=== PATIENT | female | born 1975 | race Hispanic/Latino ===

== ENCOUNTER 2021-03-24 09:05 | Emergency (ER) | payer OTHER, SELFPAY ==
--- NOTE | 2021-03-24 10:06 | ER ---
Nurse's Notes [facility] Name: Supriya Bentley Age: 45 yrs Sex: Female : 1975 Arrival Date: 03/24/2021 Time: 09:08 Bed 25 Private MD: Diagnosis: Strain of other muscles, fascia and tendons at shoulder and upper arm level, right arm Presentation: 03/24 09:18 Chief complaint: Patient states: when she was dragging the trash can 2 weeks ago, she ap3 felt a pull in her arm. She complains of right upper arm pain x's 2 weeks. Coronavirus screen: Vaccine status: Patient reports being unvaccinated. At this time, the client does not indicate any symptoms associated with coronavirus-19. Ebola Screen: No symptoms or risks identified at this time. Initial Sepsis Screen: Does the patient meet any 2 criteria? No. Patient's initial sepsis screen is negative. Does the patient have a suspected source of infection? No. Patient's initial sepsis screen is negative. Risk Assessment: Do you want to hurt yourself or someone else? Patient reports no desire to harm self or others. Onset of symptoms was March 03, 2021. 09:18 Method Of Arrival: Ambulatory ap3 09:18 Acuity: KELVIN 4 ap3 Triage Assessment: 09:20 General: Appears in no apparent distress. Behavior is calm, cooperative, appropriate ap3 for age. Pain: Complains of pain in right bicep Pain began 2 Weeks ago Alleviated by rest, Aggravated by increased activity. Neuro: Level of Consciousness is awake, alert, obeys commands, Oriented to person, place, time, situation, Appropriate for age Moves all extremities. Gait is steady, Speech is normal. Cardiovascular: Patient's skin is warm and dry. Respiratory: Airway is patent Respiratory effort is even, unlabored, Respiratory pattern is regular, symmetrical. Musculoskeletal:. 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 - Social history:: Smoking status: Patient denies any tobacco usage or history of. Screenin:21 Abuse screen: Denies threats or abuse. Nutritional screening: No deficits noted. ap3 Tuberculosis screening: No symptoms or risk factors identified. Fall Risk None identified. Vital Signs: 09:18 BP 131 / 96; Pulse 87; Resp 17; Temp 98.7(TE); Pulse Ox 100% on R/A; Weight 81.65 kg; ap3 Height 5 ft. 4 in. (162.56 cm); 09:18 Body Mass Index 30.90 (81.65 kg, 162.56 cm) ap3 ED Course: 09:08 Patient arrived in ED. as 09:18 Kiya Hart, RN is Primary Nurse. ap3 09:20 Triage completed. ap3 09:22 Arm band placed on left wrist. ap3 09:22 Patient has correct armband on for positive identification. Bed in low position. Call ap3 light in reach. Side rails up X 1. Pulse ox on. NIBP on. Door closed. Noise minimized. 09:43 Tina Hoff MD is Attending Physician. sp3 10:05 Vinh De La Cruz MD is Referral Physician. sp3 10:27 No provider procedures requiring assistance completed. Patient did not have IV access ap3 during this emergency room visit. Administered Medications: 10:11 Drug: Ketorolac 30 mg Route: IM; Site: left deltoid; ap3 10:28 Follow up: Response: No adverse reaction ap3 Outcome: 10:06 Discharge ordered by . sp3 10:28 Discharged to home ambulatory. ap3 10:28 Condition: good 10:28 Discharge instructions given to patient, Instructed on discharge instructions, follow up and referral plans. medication usage, sling use Demonstrated understanding of instructions, follow-up care, medications, Prescriptions given X 1. 10:28 Patient left the ED. ap3 Signatures: Ailyn Beyer Amanda, LAINA RN ap3 Tina Hoff MD MD sp3
--- NOTE | 2021-03-24 10:06 | EDPHYS ---
Physician Documentation [facility] Name: Supriya Bentley Age: 45 yrs Sex: Female : 1975 Arrival Date: 03/24/2021 Time: 09:08 Bed 25 Private MD: ED Physician Tina Hoff HPI: 03/24 09:59 This 45 yrs old Female presents to ER via Ambulatory with complaints of sp3 Shoulder Pain. 09:59 45-year-old female with no past medical history presents with right shoulder and upper sp3 arm muscular pain for approximately 2 weeks. Patient states that she was pulling a heavy trash can and felt a sudden onset of symptoms at that time after which the pain is been waxing and waning. Only medication she is taken is Tylenol several times over the course of the 2 weeks. She denies taking any NSAIDs or any other medications. Patient continues to use the arm but in a limited capacity secondary to the pain. Patient denies any direct trauma, fall, prior history of broken bones, any other symptoms at this time. On ROS she denies headache, neck pain, chest pain, back pain, shortness of breath, abdominal pain, nausea, vomiting, diarrhea, neuro symptoms including peripheral numbness or tingling, rash, or any other symptoms at this time. Remainder of ROS is negative.. 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 - Social history:: Smoking status: Patient denies any tobacco usage or history of. ROS: 10:03 Constitutional: Negative for fever, chills, and weight loss, Cardiovascular: Negative sp3 for chest pain, palpitations, and edema, Respiratory: Negative for shortness of breath, cough, wheezing, and pleuritic chest pain, Abdomen/GI: Negative for abdominal pain, nausea, vomiting, diarrhea, and constipation, Skin: Negative for injury, rash, and discoloration, Neuro: Negative for headache, weakness, numbness, tingling, and seizure. 10:03 All other systems are negative. sp3 Exam: 10:03 Constitutional: This is a well developed, well nourished patient who is awake, alert, sp3 and in no acute distress. Head/Face: Normocephalic, atraumatic. Eyes: Pupils equal round and reactive to light, extra-ocular motions intact. Lids and lashes normal. Conjunctiva and sclera are non-icteric and not injected. Cornea within normal limits. Periorbital areas with no swelling, redness, or edema. ENT: Nares patent. No nasal discharge, no septal abnormalities noted. External auditory canals are clear. Oropharynx with no redness, swelling, or masses, exudates, or evidence of obstruction, uvula midline. Mucous membranes moist. Neck: Trachea midline, no thyromegaly or masses palpated, and no cervical lymphadenopathy. Supple, full range of motion without nuchal rigidity, or vertebral point tenderness. No Meningismus. Chest/axilla: Normal chest wall appearance and motion. Nontender with no deformity. No lesions are appreciated. Cardiovascular: Regular rate and rhythm with a normal S1 and S2. No gallops, murmurs, or rubs. Normal PMI, no JVD. No pulse deficits. Respiratory: Lungs have equal breath sounds bilaterally, clear to auscultation and percussion. No rales, rhonchi or wheezes noted. No increased work of breathing, no retractions or nasal flaring. Abdomen/GI: Soft, non-tender, with normal bowel sounds. No distension or tympany. No guarding or rebound. No evidence of tenderness throughout. Back: No spinal tenderness. No costovertebral tenderness. Full range of motion. Skin: Warm, dry with normal turgor. Normal color with no rashes, no lesions, and no evidence of cellulitis. Neuro: Awake and alert, GCS 15, oriented to person, place, time, and situation. Cranial nerves II-XII grossly intact. Motor strength 5/5 in all extremities. Sensory grossly intact. Cerebellar exam normal. Normal gait. Psych: Awake, alert, with orientation to person, place and time. Behavior, mood, and affect are within normal limits. 10:03 Musculoskeletal/extremity: Patient has mild point tenderness over the deltoid muscle with no tenderness on the rotator cuff. Patient has full range of motion including abduction abduction. Patient has normal neurological and vascular exam in the distal extremity on the right side. . Vital Signs: 09:18 BP 131 / 96; Pulse 87; Resp 17; Temp 98.7(TE); Pulse Ox 100% on R/A; Weight 81.65 kg; ap3 Height 5 ft. 4 in. (162.56 cm); 09:18 Body Mass Index 30.90 (81.65 kg, 162.56 cm) ap3 MDM: 09:54 Patient medically screened. sp3 10:04 Data reviewed: vital signs, nurses notes. ED course: 45-year-old female with likely sp3 muscle strain on the right deltoid. We will put patient in a sling and give her instructions to stretch and exercise full range of motion but rest in between those exercises. Patient will be limited in usage. Will administer ketorolac 30 mg IM and discharged on diclofenac p.o. as needed with follow-up with her PCP.. 03/24 10:07 Order name: Sling; Complete Time: 10:11 sp3 Administered Medications: 10:11 Drug: Ketorolac 30 mg Route: IM; Site: left deltoid; ap3 10:28 Follow up: Response: No adverse reaction ap3 Disposition Summary: 03/24/21 10:06 Discharge Ordered Location: Home sp3 Condition: Stable sp3 Diagnosis - Strain of other muscles, fascia and tendons at shoulder and upper arm level, right sp3 arm Followup: sp3 - With: Vinh De La Cruz MD - When: As needed - Reason: Continuance of care Discharge Instructions: - Discharge Summary Sheet sp3 - Muscle Strain, [id number] sp3 Forms: - Medication Reconciliation Form sp3 - Thank You Letter sp3 - Antibiotic Education sp3 - Prescription Opioid Use sp3 Prescriptions: - Diclofenac Sodium 75 mg Oral Tablet Sustained Release - take 1 tablet by ORAL route 2 times per day; 30 tablet; Refills: 0, Product sp3 Selection Permitted Signatures: Kiya Hart RN RN ap3 Tina Hoff MD MD sp3
[2021-03-24] MEDS ORDERED: KETOROLAC 30 MG/ML INJ ONE (10:34)
[2021-03-24 10:39] VITALS: BP 131/96; TEMP 98.7; O2SAT 100
== END 2021-03-24 10:28 | disposition home or self-care (01) ==
LOC: ER 09:05
DX: S46.911A Strain of unspecified muscle, fascia and tendon at shoulder and upper arm level, right arm, initial encounter (principal); X50.0XXA Overexertion from strenuous movement or load, initial encounter; X50.9XXA Other and unspecified overexertion or strenuous movements or postures, initial encounter; Y93.89 Activity, other specified; Y92.9 Unspecified place or not applicable
CPT/HCPCS: 96372; 99283

== ENCOUNTER 2021-07-28 10:32 | Emergency (ER) | payer SELFPAY ==
--- OUTSIDE RECORDS SUMMARY | 2021-07-28 10:35 | XMS REPORT | Continuity of Care Document ---
:1975 Author Organization [facility] t Address [address] [place] [address] [address]. [address] [place] [address] Care Team Providers Name Role Phone Ct Gregory MD Attending Clinician Ct GREGORY Attending Clinician Unavailable Payers Payer Name Policy Type Policy Number Effective Date Expiration Date Ct LUBIN DISABILITY [id number] DETERMINATION SVCS 00:00:00 Problems Condition Condition Condition Status Onset Resolution Last Treating Co mments Source Name Details Category Date Date Treatment Clinician Date No known No known Disease Unive rs active active ity of problems problems [facility] Allergies, Adverse Reactions, Alerts Allergy Allergy Status Severity Reaction(s) Onset Inactive Treating Comm ents Source Name Type Date Date Clinician NO KNOWN Drug Active Univers ALLERGIE Class ity of S [facility] Social History Social Habit Start Date Stop Date Quantity Comments Source Sex Assigned At Uni versity [facility] Smoking Status Start Date Stop Date Source Unknown if ever smoked Universit y [facility] Medications Ordered Filled Start Stop Current Ordering Indication Dosage Frequency Signature Comments Components Source Medication Medication Date Date Medication? Clinician (SIG) Name Name ondansetron 2020-0 2020- No 4mg 4 mg, Slow Univers (ZOFRAN 3-17 17 IV Push, ity of (PF)) 11:00: 10:00 ONCE, 1 [place] injection 4 00 :00 dose, Tue Med ical mg 08/15/19 at Branch 0600, [place] morpHINE 2020-0 2020- No 4mg 4 mg, Slow Un tania injection 4 3-17 -17 IV Push, ity of mg 11:00: 10:00 ONCE, 1 [place] 00 :00 dose, Tue Medical 08/15/19 at Branch 0600, STAT HYDROcodone 2020-0 Yes [id number] 1{tbl} Take 1 Univers -acetaminop 3-17 tablet by ity of hen 10-325 00:00: mouth [place] mg tablet 00 every 6 Medical (six) Branch hours as needed for Pain (scale 7-10). Vital Signs Vital Name Observation Time Observation Value Comments Source Diastolic blood 2019-08-15 09:50:00 56 mm[Hg] Unive rsity of [facility] Heart rate 2019-08-15 09:50:00 80 /min [facility] Body temperature 2019-08-15 09:50:00 36.83 Faye [facility] Respiratory rate 2019-08-15 09:50:00 18 /min [facility] Body weight 2019-08-15 09:50:00 81.647 kg [facility] Oxygen saturation in 2019-08-15 09:50:00 99 /min [facility] Arterial blood by [facility] Pulse oximetry Branch Systolic blood 2019-08-15 09:50:00 123 mm[Hg] Univer sity [facility] [place] [facility] Procedures Procedure Date / Time Performed Performing Clinician [facility] e NOTICE OF PRIVACY 2019-08-15 09:37:12 Doctor Unassigned, No Univ [facility] PRACTICES Name [facility] CONSENT/REFUSAL FOR 2019-08-15 09:36:49 Doctor Unassigned, No Un [facility] DIAGNOSIS AND Name Medical Branch TREATMENT Encounters Start End Encounter Admission Attending Care Care Encounter Source Date/Time Date/Time Type Type Clinicians Facility Department ID 2019-08-15 2019-08-15 Emergency [facility] [id number] Univers 04:49:25 07:04:00 Eli Fraga [id number] [place] [id number] [facility] [id number] [facility] 084 Branch 2019-08-15 2019-08-15 Emergency X [facility] ERT [id number] Univers 04:49:25 04:49:25 ELI lackey [facility] Results This patient has no known results.
[2021-07-28 11:24] LABS: Absolute Lymphocytes (CBC) 1.8 K/uL (0.7-4.9); Hematocrit 37.3 % (36.0-45.0); Lymphocytes % 21.4 % (15.3-44.8); MPV 8.8 fL (7.6-11.3); RBC Red Blood Cell Count 4.15 M/uL (3.86-4.86)
--- NOTE | 2021-07-28 11:44 | RAD REPORT ---
EXAM DESCRIPTION: CT - Head Brain Wo Cont - 07/28/2021 11:34 am CLINICAL HISTORY: SEIZURE COMPARISON: No comparisons TECHNIQUE: All CT scans are performed using dose optimization technique as appropriate and may inclu de automated exposure control or mA/KV adjustment according to patient size. FINDINGS: No intracranial hemorrhage, hydrocephalus or extra-axial fluid collection.No areas of brai n edema or evidence of midline shift. The paranasal sinuses and mastoids are clear. The calvarium is intact. IMPRESSION: No acute intracranial abnormality.
[2021-07-28 11:57] LABS: Urine Blood Trace-intact (Negative); Urine Glucose Negative (Negative); Urine Protein Negative (Negative); Urine Specific Gravity 1.015 (1.005-1.030); Urine pH 5.5 (5.0-7.0)
[2021-07-28 12:11] LABS: Protime INR 0.95
[2021-07-28 12:13] LABS: Barbiturates NEGATIVE (NEGATIVE); Benzodiazepines NEGATIVE (NEGATIVE); Cocaine NEGATIVE (NEGATIVE); METHAMPHETAM NEGATIVE (NEGATIVE); Methadone NEGATIVE (NEGATIVE); Opiates NEGATIVE (NEGATIVE); Phencyclidine NEGATIVE (NEGATIVE); THC Cannibis NEGATIVE (NEGATIVE)
[2021-07-28 12:27] LABS: ALT/SGPT 21 U/L (12-78); AST/SGOT 12 U/L (15-37); Albumin 3.7 g/dL (3.4-5.0); Alkaline Phosphatase 125 U/L (45-117); BUN Blood Urea Nitrogen 9 mg/dL (7-18); Bicarbonate 24 mmol/L (21-32); Bilirubin Direct < 0.1 mg/dL (0-0.2); Bilirubin Total 0.2 mg/dL (0.2-1.0); Glucose Level 94 mg/dL (74-106); Potassium 3.7 mmol/L (3.5-5.1); Sodium Level 138 mmol/L (136-145)
[2021-07-28 12:37] LABS: Urine Specific Gravity/Preg 1.015 (1.005-1.030)
[2021-07-28] MEDS ORDERED: KETOROLAC 30 MG/ML INJ ONE (12:44)
[2021-07-28 13:49] LABS: Urine Bacteria 20-50 /HPF (<20); Urine Mucus LIGHT /HPF (NONE SEEN); Urine RBC <5 /HPF (NONE SEEN)
--- NOTE | 2021-07-28 15:16 | ER ---
Nurse's Notes [facility] Name: Supriya Bentley Age: 45 yrs Sex: Female : 1975 Arrival Date: 07/28/2021 Time: 10:34 Bed 7 Private MD: Brian Almanza F Diagnosis: Other seizures Presentation: 07/28 10:47 Chief complaint: Patient states: has a hx of seizures and over past three days she has iw had seizures every day, at night and in the morning, last ine was this morning, she normally only has seizures every 3-4 months, takes dilantin and keppra daily, sees Dr. Almanza. Coronavirus screen: At this time, the client does not indicate any symptoms associated with coronavirus-19. Ebola Screen: Patient negative for fever greater than or equal to 101.5 degrees Fahrenheit, and additional compatible Ebola Virus Disease symptoms Patient denies exposure to infectious person. Patient denies travel to an Ebola-affected area in the 21 days before illness onset. No symptoms or risks identified at this time. Initial Sepsis Screen: Does the patient meet any 2 criteria? No. Patient's initial sepsis screen is negative. Does the patient have a suspected source of infection? No. Patient's initial sepsis screen is negative. Risk Assessment: Do you want to hurt yourself or someone else? Patient reports no desire to harm self or others. Onset of symptoms was July 25, 2021. 10:47 Method Of Arrival: Ambulatory iw 10:47 Acuity: KELVIN 3 iw Triage Assessment: 10:50 General: Appears in no apparent distress. comfortable, Behavior is calm, cooperative, bp appropriate for age. Pain: Denies pain. EENT: No deficits noted. Neuro: Level of Consciousness is awake, alert, obeys commands, Oriented to Appropriate for age Seizure activity reported prior to arrival. Cardiovascular: No deficits noted. Respiratory: No deficits noted. GI: No signs and/or symptoms were reported involving the gastrointestinal system. : No signs and/or symptoms were reported regarding the genitourinary system. Derm: No deficits noted. Musculoskeletal: No deficits noted. Historical: - Allergies: 10:49 No Known Allergies; iw - Home Meds: 10:49 Phenytoin 100 mg Oral twice a day [Active]; levetiracetam 500 mg oral tab 1 tab 2 times iw per day [Active]; - PMHx: 10:49 Seizure; iw - PSHx: 10:49 bladder; iw - Immunization history:: Client reports having NOT received the Covid vaccine. - Social history:: Smoking status: Patient denies any tobacco usage or history of. Screenin:50 Abuse screen: Denies threats or abuse. Denies injuries from another. Nutritional bp screening: No deficits noted. Tuberculosis screening: No symptoms or risk factors identified. Fall Risk None identified. Assessment: 10:50 General: SEE TRIAGE NOTE. bp 13:05 Reassessment: No changes from previously documented assessment. Patient and/or family bp updated on plan of care and expected duration. Pain level reassessed. ALL CURRENT ORDERS COMPLETE. 14:17 Reassessment: No changes from previously documented assessment. Patient and/or family bp updated on plan of care and expected duration. Pain level reassessed. AWAITING ADD ON LAB RESULTS. 16:02 Reassessment: PT D/C HOME AMBULATORY WITH FAMILY, DX WITH EPILEPSY. bp Vital Signs: 10:47 BP 146 / 99; Pulse 82; Resp 16; Temp 98.1; Pulse Ox 100% on R/A; Weight 83.91 kg; iw Height 5 ft. 2 in. (157.48 cm); Pain 0/10; 12:00 BP 131 / 90; Pulse 72; Resp 16; Pulse Ox 100% ; bp 13:00 BP 144 / 86; Pulse 74; Resp 17; Pulse Ox 100% ; bp 14:00 BP 136 / 89; Pulse 71; Resp 16; Pulse Ox 100% ; bp 16:02 BP 124 / 80; Pulse 75; Resp 16; Pulse Ox 100% ; bp 10:47 Body Mass Index 33.84 (83.91 kg, 157.48 cm) iw Christine Coma Score: 10:50 Eye Response: spontaneous(4). Verbal Response: oriented(5). Motor Response: obeys bp commands(6). Total: 15. ED Course: 10:34 Patient arrived in ED. am2 10:35 Brian Almanza MD is Private Physician. am2 10:44 Rocky Hernández, LAINA is Primary Nurse. bp 10:47 Kiko Hancock PA is PHCP. cp 10:47 Kiko Thao MD is Attending Physician. cp 10:49 Triage completed. iw 10:50 Patient has correct armband on for positive identification. Bed in low position. Call bp light in reach. Side rails up X2. Adult w/ patient. 10:51 Arm band placed on. iw 11:00 Seizure precautions initiated. bp 11:22 EKG done, by ED staff, reviewed by Kiko VICK. mb7 11:33 CT Head Brain wo Cont In Process Unspecified. EDMS 11:59 Urine Drug Screen Sent. mb7 15:15 Brian Almanza MD is Referral Physician. cp 16:04 No provider procedures requiring assistance completed. IV discontinued, intact, bp bleeding controlled, No redness/swelling at site. Pressure dressing applied. Administered Medications: 12:44 Not Given (Patient Refused): Ketorolac 30 mg IVP once jd3 15:30 Drug: Dilantin (phenytoin sodium extended) 500 mg Route: PO; bp 16:04 Follow up: Response: No adverse reaction bp Outcome: 15:15 Discharge ordered by MD. cp 16:04 Discharged to home ambulatory, with family. bp 16:04 Condition: stable 16:04 Discharge instructions given to patient, Instructed on discharge instructions, follow up and referral plans. medication usage, Demonstrated understanding of instructions, follow-up care, medications, Prescriptions given X 1. 16:04 Patient left the ED. bp Signatures: Dispatcher [employer] EDMS Saritha Paredes, Kiko Narayanan RN, PA PA cp Kiya Parrish am2 Rocky Hernández, LAINA RN bp Marita Casillas mb7 Gray Renee RN jd3
--- NOTE | 2021-07-28 15:16 | EDPHYS ---
Physician Documentation [facility] Name: Supriya Bentley Age: 45 yrs Sex: Female : 1975 Arrival Date: 07/28/2021 Time: 10:34 Bed 7 Private MD: Brian Almanza F ED Physician Kiko Thao HPI: 07/28 11:05 This 45 yrs old Female presents to ER via Ambulatory with complaints of cp Probable Seizure. 11:05 The patient presents with a history of multiple seizures, most recent seizure this cp morning. 11:05 Seizure Hx: Original onset: since childhood,\E\ Seizure medications: Keppra, Dilantin. cp Associated injury: The patient did not suffer any apparent associated injury. Patient reports increase in seizures over past several days. Patient denies feeling ill, chest pain, abdominal pain. Historical: - Allergies: 10:49 No Known Allergies; iw - Home Meds: 10:49 Phenytoin 100 mg Oral twice a day [Active]; levetiracetam 500 mg oral tab 1 tab 2 times iw per day [Active]; - PMHx: 10:49 Seizure; iw - PSHx: 10:49 bladder; iw - Immunization history:: Client reports having NOT received the Covid vaccine. - Social history:: Smoking status: Patient denies any tobacco usage or history of. ROS: 11:10 Neuro: Positive for history of seizure, Negative for altered mental status, headache, cp weakness. 11:10 Eyes: Negative for injury, pain, redness, and discharge. cp 11:10 Constitutional: Negative for body aches, chills, fever, poor PO intake. 11:10 Neck: Negative for pain with movement, pain at rest, stiffness. 11:10 Cardiovascular: Negative for chest pain, edema, palpitations. 11:10 Respiratory: Negative for cough, shortness of breath, wheezing. 11:10 Abdomen/GI: Negative for abdominal pain, nausea, vomiting, and diarrhea. 11:10 : Negative for urinary symptoms. 11:10 All other systems are negative. Exam: 11:15 Constitutional: The patient appears in no acute distress, alert, awake, cp non-diaphoretic, non-toxic, well developed, well nourished. 11:15 Head/Face: Normocephalic, atraumatic. cp 11:15 Eyes: Periorbital structures: appear normal, Pupils: equal, round, and reactive to light and accomodation, Extraocular movements: intact throughout, Conjunctiva: normal, no exudate, no injection, Sclera: no appreciated abnormality, Lids and lashes: appear normal, bilaterally. 11:15 ENT: External ear(s): are unremarkable, Nose: is normal, Mouth: Lips: moist, Oral mucosa: moist, Posterior pharynx: Airway: no evidence of obstruction, patent. 11:15 Neck: ROM/movement: is normal, is supple, without pain, no range of motions limitations, no nuchal rigidity. 11:27 ECG was reviewed by the Attending Physician. Vital Signs: 10:47 BP 146 / 99; Pulse 82; Resp 16; Temp 98.1; Pulse Ox 100% on R/A; Weight 83.91 kg; iw Height 5 ft. 2 in. (157.48 cm); Pain 0/10; 12:00 BP 131 / 90; Pulse 72; Resp 16; Pulse Ox 100% ; bp 13:00 BP 144 / 86; Pulse 74; Resp 17; Pulse Ox 100% ; bp 14:00 BP 136 / 89; Pulse 71; Resp 16; Pulse Ox 100% ; bp 16:02 BP 124 / 80; Pulse 75; Resp 16; Pulse Ox 100% ; bp 10:47 Body Mass Index 33.84 (83.91 kg, 157.48 cm) iw [place] Coma Score: 10:50 Eye Response: spontaneous(4). Verbal Response: oriented(5). Motor Response: obeys bp commands(6). Total: 15. MDM: 10:48 Patient medically screened. cp 15:05 Data reviewed: vital signs, nurses notes, lab test result(s), EKG, radiologic studies, cp CT scan. 15:05 Test interpretation: by ED physician or midlevel provider: ECG. Physician consultation: cp Brian Almanza MD was called at 15:05, was contacted at 15:05, regarding consult, patient's condition, will have patient increase Dilantin and take 200 mg in morning and 300mg before bedtime, f/u in clinic in 1 week to recheck dilantin level. Give 500 mg Dilantin in ED now. 07/28 10:55 Order name: Acetaminophen; Complete Time: 12:39 cp 07/28 14:19 Interpretation: Reviewed. cp 07/28 10:55 Order name: Basic Metabolic Panel; Complete Time: 12:39 cp 07/28 12:40 Interpretation: Normal except: CL 109. cp 07/28 10:55 Order name: CBC with Diff; Complete Time: 11:56 cp 07/28 11:56 Interpretation: Normal except: MCV 89.8; RDW 15.3. cp 07/28 10:55 Order name: ETOH Level; Complete Time: 12:39 cp 07/28 10:55 Order name: Hepatic Function; Complete Time: 12:39 cp 07/28 12:40 Interpretation: Normal except: AST 12; ALK 125; GLOB 4.3; A/G 0.9. cp 07/28 10:55 Order name: PT-INR; Complete Time: 12:39 cp 07/28 10:55 Order name: Ptt, Activated; Complete Time: 12:39 cp 07/28 10:55 Order name: Salicylate; Complete Time: 12:39 cp 07/28 10:55 Order name: Urine Drug Screen; Complete Time: 12:39 cp 07/28 11:57 Order name: Urine Dipstick-Ancillary; Complete Time: 12:39 EDNV 07/28 12:40 Interpretation: Normal except: UBLD Trace-intact; UESTR 1+. 07/28 11:58 Order name: Urine --Ancillary (enter results); Complete Time: 12:39 bd 07/28 13:04 Order name: Dilantin; Complete Time: 15:05 cp 07/28 13:04 Order name: Urine Microscopic Only; Complete Time: 13:52 cp 07/28 14:20 Interpretation: Normal except: UBACT 20-50; SQEPI 10-20. cp 07/28 13:50 Order name: Urine Culture EDNV 07/28 10:55 Order name: EKG; Complete Time: 10:55 cp 07/28 10:55 Order name: EKG - Nurse/Tech; Complete Time: 11:22 cp 07/28 10:55 Order name: IV Saline Lock; Complete Time: 11:25 cp 07/28 10:55 Order name: Labs collected and sent; Complete Time: 11:25 cp 07/28 10:55 Order name: Urine Dipstick-Ancillary (obtain specimen); Complete Time: 11:59 cp 07/28 10:55 Order name: Urine Test (obtain specimen); Complete Time: 11:59 cp 07/28 11:08 Order name: CT Head Brain wo Cont; Complete Time: 11:56 cp 07/28 11:56 Interpretation: Report reviewed. cp 07/28 11:29 Order name: Labs - recollect needed: recollect all tubes; Complete Time: 11:52 bd EC:27 Rate is 76 beats/min. Rhythm is regular. ND interval is normal. QRS interval is normal. cp QT interval is normal. T waves are Inverted in lead aVR. Interpreted by me. Reviewed by me. Administered Medications: 12:44 Not Given (Patient Refused): Ketorolac 30 mg IVP once jd3 15:30 Drug: Dilantin (phenytoin sodium extended) 500 mg Route: PO; bp 16:04 Follow up: Response: No adverse reaction bp Disposition Summary: 07/28/21 15:15 Discharge Ordered Location: Home cp Problem: an ongoing problem cp Symptoms: are unchanged cp Condition: Stable cp Diagnosis - Other seizures cp Followup: cp - With: Brian Almanza MD - When: 1 week - Reason: Recheck today's complaints Discharge Instructions: - Discharge Summary Sheet cp - Epilepsy cp Forms: - Medication Reconciliation Form cp - Thank You Letter cp - Antibiotic Education cp - Prescription Opioid Use cp Prescriptions: - Dilantin Kapseal 100 mg Oral Capsule - take 2 capsule by ORAL route once daily in the morning and 3 capsules in cp evening before bedtime; 150 capsule; Refills: 0, Product Selection Permitted Addendum: 07/31/2021 09:19 Co-signature as Attending Physician, Kiko Thao MD I agree with the assessment and c contreras plan of care. Signatures: Dispatcher [employer] EDMS Kailee Haley Corey, MD MD cha Williams, Irene, RN Kiko Narayanan PA PA cp Gray Renee RN RN jd3 Peltier, Brian, RN RN bp Corrections: (The following items were deleted from the chart) 07/28 11:02 10:55 Suicide Screening ([place]) ordered. cp bp
[2021-07-28] MEDS ORDERED: PHENYTOIN ER 100 MG CAP PO ONE (15:59)
[2021-07-28 16:35] VITALS: TEMP 98.1; O2SAT 100
[2021-07-28 16:45] VITALS: BP 124/80
--- NOTE | 2021-07-29 09:12 | EKG ---
Test Date: 2021-07-28 Test Time: 11:21:54 Vp [employer]: FELICE MEASUREMENT RESULTS: Intervals: Rate: 76 IL: 164 QRSD: 68 QT: 346 QTc: 389 Aldie: P: 57 IL: 164 QRS: 55 T: 21 INTERPRETIVE STATEMENTS: Normal sinus rhythm Nonspecific T wave abnormality Abnormal ECG Compared to ECG 09/29/2014 09:24:06 T-wave abnormality now present Electronically Signed On 07-29-21 09:09:22 TELEVISION CABLE INSTALLER by Nura Sanz
== END 2021-07-28 16:04 | disposition home or self-care (01) ==
LOC: ER 10:32
DX: G40.89 Other seizures (principal)
CPT/HCPCS: 36415; 70450; 80048; 80076; 80185; 80307; 80320; 80329; 81003; 81015; 81025; 85025; 85610; 85730; 87086; 87088; 93005; 99284